=== PATIENT | female | born 1990 | race Caucasian/White ===

== ENCOUNTER 2021-04-06 23:58 | Observation (INO) ==
[2021-04-07] MEDS ORDERED: ONDANSETRON 4 MG/2 ML VIAL ONE (00:12)
[2021-04-07] MEDS ORDERED: AMMONIA INHALANT 1 EACH AMP INH ONE (00:12)
[2021-04-07] MEDS ORDERED: DEXTROSE 50% 25 GM/50 ML SYRINGE IV ONE (00:15)
[2021-04-07] MEDS ORDERED: DEXTROSE 50% 25 GM/50 ML SYRINGE IV STA (00:24)
[2021-04-07] MEDS ORDERED: SODIUM CHLORIDE 0.9% 500 ML IV STA (00:24)
[2021-04-07 00:48] LABS: Basophils % 0.5 % (0.0-0.8); Eosinophils # 0.2 10*3/uL (0.0-0.87); Eosinophils % 2.8 % (0.00-10.9); Hematocrit 39.3 VOL% (35.7-47.0); Immature Granulocytes % 0.5 %; Immature Granulocytes Absolute 0.03 #; Lymphocytes # 2.1 10*3/uL (1.4-4.0); Lymphocytes % 32.6 % (21.3-54.2); Mean Corpuscular HGB Conc 33.1 GM/DL (32-36); Mean Corpuscular Volume 89.1 FL (87-102); Mean Platelet Volume 11.2 FL (9.6-12.0); Monocytes % 6.1 % (1.7-12.7); Neutrophils % 57.5 % (38.7-73.9); Platelet Count 225 T/CUMM (130-400); Red Blood Count 4.41 MC/CUMM (3.8-5.5); Red Cell Distribution Width 12.5 % (9.3-17.3); Salicylate < 2.8 MG/DL (2.8-20); White Blood Count 6.4 T/CUMM (4-12)
[2021-04-07 00:50] LABS: Lactic Acid 1.1 MMOL/L (0.4-2.0)
[2021-04-07 01:01] LABS: Alanine Aminotransferase 14 U/L (13-56); Alkaline Phosphatase 80 U/L (45-117); Aspartate Amino Transferase 13 U/L (0-37); Blood Urea Nitrogen 8 MG/DL (7-18); Calcium 8.8 MG/DL (8.5-10.1); Carbon Dioxide 23 MMOL/L (21-32); Estimated Glom Filtration Rate 114 ML/MIN; Glucose 87 MG/DL (74-106); Osmolality,Calculated 275.4 MOS/KG (273-304); Potassium 3.9 MMOL/L (3.5-5.1); Sodium 140 MMOL/L (136-145); Total Protein 7.1 G/DL (6.4-8.2)
[2021-04-07 01:21] LABS: ABG Base Excess -0.8 MMOL/L (-2.5-2.5); ABG HCO3 23.8 MMOL/L (20-26); ABG Oxygen Saturation 98.4 % (95-100); ABG PH 7.395 (7.35-7.45); ABG TCO2 21.2 MMOL/L (23-27)
[2021-04-07] MEDS ORDERED: ACETAMINOPHEN 325 MG TABLET PO PRN (03:18)
[2021-04-07] MEDS ORDERED: DEXTROSE 50% 25 GM/50 ML VIAL IV PRN (03:18)
[2021-04-07] MEDS ORDERED: GLUCAGON 1 MG VIAL IM PRN (03:18)
[2021-04-07] MEDS ORDERED: ONDANSETRON 4 MG/2 ML VIAL IV PRN (03:18)
[2021-04-07] MEDS ORDERED: LACTATED RINGERS 1,000 ML IV SCH (03:30)
[2021-04-07] MEDS ORDERED: cefTRIAXone 2,000 MG in SODIUM CHLORIDE 0.9% 100 ML IV STA (03:48)
[2021-04-07 04:09] LABS: Basophils % 0.4 % (0.0-0.8); Eosinophils # 0.2 10*3/uL (0.0-0.87); Eosinophils % 2.8 % (0.00-10.9); Hematocrit 33.6 VOL% (35.7-47.0); Immature Granulocytes % 0.2 %; Immature Granulocytes Absolute 0.01 #; Lymphocytes # 1.8 10*3/uL (1.4-4.0); Lymphocytes % 32.6 % (21.3-54.2); Mean Corpuscular HGB Conc 32.4 GM/DL (32-36); Mean Corpuscular Volume 89.8 FL (87-102); Mean Platelet Volume 11.2 FL (9.6-12.0); Monocytes % 5.9 % (1.7-12.7); Neutrophils % 58.1 % (38.7-73.9); Platelet Count 185 T/CUMM (130-400); Red Blood Count 3.74 MC/CUMM (3.8-5.5); Red Cell Distribution Width 12.4 % (9.3-17.3); White Blood Count 5.6 T/CUMM (4-12)
[2021-04-07 04:13] LABS: Hemoglobin 10.9 GM/DL (12.0-16.0)
[2021-04-07 04:22] LABS: Appearance,CSF Hazy
[2021-04-07 04:23] LABS: Lymphocytes,CSF 33 %; Neutrophils,CSF 67 %; Red Blood Cell,CSF 1178 C/CUMM; White Blood Cell,CSF 5 C/CUMM
[2021-04-07 04:38] LABS: Albumin 3.2 G/DL (3.4-5.0); Bilirubin,Total 0.4 MG/DL (0.20-1.00); Calcium 7.6 MG/DL (8.5-10.1); Potassium 3.3 MMOL/L (3.5-5.1); Total Protein 5.5 G/DL (6.4-8.2)
[2021-04-07 04:38] LABS: Glucose,CSF 62 MG/DL (40-70)
[2021-04-07] MEDS ORDERED: POTASSIUM CHLORIDE 20 MEQ TABLET PO STA (04:52)
[2021-04-07] MEDS ORDERED: PROMETHAZINE 25 MG/1 ML VIAL IM STA (04:52)
[2021-04-07 05:40] LABS: Bilirubin,Urine Negative (Negative); Blood, Urine Moderate mg/dL (Negative); Glucose,Urine (UA) >=500 mg/dL (Negative); Ketones,Urine 5 mg/dL (Negative); Mucus,Urine Occasional /LPF (Occasional); Nitrite,Urine Negative (Negative); Protein,Urine Negative; RBC,Urine 10 /HPF (0-4); Squamous Epithelial Cell,Urine Occasional /HPF (0-10); Urine Appearance CLEAR (Clear); Urine Color Yellow (Yellow); Urine Specific Gravity 1.014 (1.001-1.035); Urine Urobilinogen < 2.0 EU/DL (0.2-1.0)
[2021-04-07 05:52] LABS: Barbiturates Screen,Urine Negative (Negative); Benzodiazepines Screen,Urine Negative (Negative); Cannabinoid Screen,Urine Negative (Negative); Opiate Screen,Urine Negative (Negative); Phencyclidine Screen,Urine Negative (Negative)
[2021-04-07] MEDS ORDERED: MAGNESIUM SULF RIDER 4 GM/100 ML PREMIX IV PRN (07:15)
[2021-04-07] MEDS ORDERED: MAGNESIUM SULF RIDER 2 GM/50 ML PREMIX IV PRN (07:15)
[2021-04-07] MEDS: POTASSIUM CHLORIDE RIDER 10 MEQ/100 ML PREMIX IV PRN ×3 (16:00→21:52)
[2021-04-07 16:11] LABS: Hematocrit 35.5 VOL% (35.7-47.0); Hemoglobin 11.5 GM/DL (12.0-16.0)
[2021-04-07] MEDS: PROMETHAZINE 25 MG/1 ML VIAL IM PRN (17:44)
[2021-04-07] MEDS: TOPIRAMATE 25 MG TABLET PO SCH (21:51)
[2021-04-08] MEDS: PROMETHAZINE 25 MG/1 ML VIAL IM PRN ×4 (00:33→21:40)
[2021-04-08] MEDS: POTASSIUM CHLORIDE RIDER 10 MEQ/100 ML PREMIX IV PRN (02:05)
[2021-04-08] MEDS: cefTRIAXone 1,000 MG in SODIUM CHLORIDE 0.9% 100 ML IV SCH (10:21)
[2021-04-08 12:06] LABS: Calcium 8.2 MG/DL (8.5-10.1)
[2021-04-08] MEDS: TOPIRAMATE 25 MG TABLET PO SCH (21:41)
[2021-04-09] MEDS: cefTRIAXone 1,000 MG in SODIUM CHLORIDE 0.9% 100 ML IV SCH (05:01)
[2021-04-09 08:21] VITALS: BP 83/43
== END 2021-04-09 10:18 | disposition home or self-care (01) ==
LOC: N.ED 23:58 → N.EDINP 23:58 → SUATTDRO 04-07 03:18 → N.TELEN 04-07 06:25
PROVIDERS: ADMIT Internal Medicine; ATTEND Internal Medicine Geriatric Medicine

== ENCOUNTER 2022-02-04 17:57 | Inpatient (IN) ==
[2022-02-04] MEDS ORDERED: ETOMIDATE 20 MG/10 ML VIAL IV ONE (18:22)
[2022-02-04] MEDS ORDERED: VECURONIUM 10 MG VIAL IV ONE (18:22)
[2022-02-04] MEDS ORDERED: ONDANSETRON 4 MG/2 ML VIAL IV STA (18:31)
[2022-02-04] MEDS ORDERED: SODIUM CHLORIDE 0.9% 1,000 ML IV STA (18:31)
[2022-02-04 18:45] LABS: Arterial Base Excess iSTAT 1 MMOL/L (-2.5-2.5); Arterial Bicarbonate iSTAT 23.6 MMOL/L (20-26); Arterial O2 Saturation iSTAT 100 % (95-100); Arterial PCO2 iSTAT 30 MM HG (35-48); Arterial PO2 iSTAT 558 MM HG (80-95); Arterial Total CO2 iSTAT 24 MMO/L (23-27); Arterial pH iSTAT 7.508 (7.35-7.45)
[2022-02-04 18:57] LABS: Basophils # 0.1 10*3/uL (0.0-0.2); Basophils % 0.9 % (0.0-0.8); Eosinophils # 0.2 10*3/uL (0.0-0.87); Eosinophils % 2.7 % (0.00-10.9); Hematocrit 38.4 VOL% (35.7-47.0); Hemoglobin 12.7 GM/DL (12.0-16.0); Immature Granulocytes % 0.4 %; Immature Granulocytes Absolute 0.02 #; Lymphocytes # 2.1 10*3/uL (1.4-4.0); Lymphocytes % 36.9 % (21.3-54.2); Mean Corpuscular HGB Conc 33.1 GM/DL (32-36); Mean Corpuscular Volume 86.7 FL (87-102); Mean Platelet Volume 11.4 FL (9.6-12.0); Monocytes # 0.4 10*3/uL (0.11-0.8); Monocytes % 7.5 % (1.7-12.7); Neutrophils % 51.6 % (38.7-73.9); Platelet Count 207 T/CUMM (130-400); Red Blood Count 4.43 MC/CUMM (3.8-5.5); Red Cell Distribution Width 13.5 % (9.3-17.3); White Blood Count 5.6 T/CUMM (4-12)
[2022-02-04 19:02] LABS: Alanine Aminotransferase 15 U/L (13-56); Albumin 3.8 G/DL (3.4-5.0); Alkaline Phosphatase 83 U/L (45-117); Aspartate Amino Transferase 12 U/L (0-37); Bilirubin,Total < 0.39 MG/DL (0.20-1.00); Blood Urea Nitrogen 6 MG/DL (7-18); Calcium 8.5 MG/DL (8.5-10.1); Carbon Dioxide 25 MMOL/L (21-32); Chloride 113 MMOL/L (98-107); Glucose 92 MG/DL (74-106); Osmolality,Calculated 283.8 MOS/KG (273-304); Potassium 3.9 MMOL/L (3.5-5.1); Sodium 144 MMOL/L (136-145); Total Protein 6.7 G/DL (6.4-8.2)
[2022-02-04] MEDS ORDERED: MIDAZOLAM 10 MG/2 ML VIAL ONE (19:29)
[2022-02-04] MEDS ORDERED: MIDAZOLAM 100 MG in SODIUM CHLORIDE 0.9% 80 ML IV PRN (19:38)
[2022-02-04] MEDS ORDERED: SODIUM CHLORIDE 0.9% 500 ML IV STA (19:39)
[2022-02-04] MEDS ORDERED: MIDAZOLAM 10 MG/2 ML VIAL IV STA (19:39)
[2022-02-04] MEDS ORDERED: PIPERACILLIN/TAZOBACTAM 3,375 MG in SODIUM CHLORIDE 0.9% 100 ML IV STA (19:42)
[2022-02-04] MEDS ORDERED: ACETAMINOPHEN 325 MG TABLET PO PRN (19:46)
[2022-02-04] MEDS ORDERED: ALBUTEROL 2.5 MG/3 ML NEB RESP TX PRN (19:46)
[2022-02-04] MEDS ORDERED: ACETYLCYSTEINE IV ONE ×2 (20:36→21:36)
[2022-02-04] MEDS ORDERED: DEXTROSE 5% IV ONE ×2 (20:36→21:36)
[2022-02-04 20:58] LABS: Bilirubin,Urine Negative (Negative); Blood, Urine Negative (Negative); Glucose,Urine (UA) Negative (Negative); Ketones,Urine Trace mg/dL (Negative); Nitrite,Urine Negative (Negative); Protein,Urine Negative (Negative); Urine Appearance Clear (Clear); Urine Color Yellow (Yellow); Urine Specific Gravity <= 1.005 (1.001-1.035); Urine Urobilinogen 0.2 eU/dL (<2.0); Urine pH 5.5 (4.5-8.0)
[2022-02-04 20:59] LABS: Bacteria,Urine Occasional /HPF (Few); Mucus,Urine Occasional /LPF (Occasional); Squamous Epithelial Cell,Urine Occasional /HPF (0-10)
[2022-02-04] MEDS ORDERED: PANTOPRAZOLE 40 MG VIAL IV SCH (21:00)
[2022-02-04 21:26] LABS: Arterial Base Excess iSTAT -6 MMOL/L (-2.5-2.5); Arterial Bicarbonate iSTAT 20.3 MMOL/L (20-26); Arterial O2 Saturation iSTAT 100 % (95-100); Arterial PCO2 iSTAT 45 MM HG (35-48); Arterial PO2 iSTAT 281 MM HG (80-95); Arterial Total CO2 iSTAT 22 MMO/L (23-27); Arterial pH iSTAT 7.265 (7.35-7.45)
[2022-02-04 21:48] LABS: Barbiturates Screen,Urine Positive (Negative); Benzodiazepines Screen,Urine Positive (Negative); Cannabinoid Screen,Urine Negative (Negative); Opiate Screen,Urine Negative (Negative); Phencyclidine Screen,Urine Negative (Negative)
[2022-02-04] MEDS: SODIUM CHLORIDE 0.9% 1,000 ML IV SCH (22:10)
[2022-02-05] MEDS: ENOXAPARIN 40 MG/0.4 ML SYRINGE SUBCUT SCH ×2 (00:02→20:37)
[2022-02-05] MEDS: ALBUTEROL/IPRATROPIUM 3 ML NEB RESP TX SCH ×4 (00:10→18:25)
[2022-02-05] MEDS ORDERED: ACETYLCYSTEINE IV ONE (01:36)
[2022-02-05] MEDS ORDERED: DEXTROSE 5% IV ONE (01:36)
[2022-02-05 03:09] LABS: Arterial Base Excess iSTAT -2 MMOL/L (-2.5-2.5); Arterial Bicarbonate iSTAT 21.5 MMOL/L (20-26); Arterial O2 Saturation iSTAT 100 % (95-100); Arterial PCO2 iSTAT 33 MM HG (35-48); Arterial PO2 iSTAT 199 MM HG (80-95); Arterial Total CO2 iSTAT 22 MMO/L (23-27); Arterial pH iSTAT 7.424 (7.35-7.45)
[2022-02-05] MEDS: THIAMINE INJ 100 MG, FOLIC ACID INJ 1 MG, MULTIVITAMIN INJ 10 ML in SODIUM CHLORIDE 0.9... IV SCH (03:31)
[2022-02-05] MEDS: SODIUM CHLORIDE 0.9% 1,000 ML IV SCH (04:13)
[2022-02-05 04:14] LABS: Basophils % 0.4 % (0.0-0.8); Eosinophils # 0.2 10*3/uL (0.0-0.87); Eosinophils % 1.8 % (0.00-10.9); Hematocrit 33.6 VOL% (35.7-47.0); Hemoglobin 11.2 GM/DL (12.0-16.0); Immature Granulocytes % 0.4 %; Immature Granulocytes Absolute 0.03 #; Lymphocytes % 24.7 % (21.3-54.2); Mean Corpuscular HGB Conc 33.3 GM/DL (32-36); Mean Corpuscular Volume 87.5 FL (87-102); Monocytes # 0.5 10*3/uL (0.11-0.8); Monocytes % 6.2 % (1.7-12.7); Neutrophils % 66.5 % (38.7-73.9); Platelet Count 181 T/CUMM (130-400); Red Blood Count 3.84 MC/CUMM (3.8-5.5); Red Cell Distribution Width 13.3 % (9.3-17.3); White Blood Count 8.3 T/CUMM (4-12)
[2022-02-05 04:28] LABS: INR 1.2; PT Patient Result 12.6 SECS (10.5-12.0)
[2022-02-05 04:35] LABS: Alanine Aminotransferase 22 U/L (13-56); Albumin 2.9 G/DL (3.4-5.0); Alkaline Phosphatase 65 U/L (45-117); Aspartate Amino Transferase 11 U/L (0-37); Bilirubin,Total < 0.39 MG/DL (0.20-1.00); Blood Urea Nitrogen 4 MG/DL (7-18); Calcium 7.4 MG/DL (8.5-10.1); Carbon Dioxide 23 MMOL/L (21-32); Chloride 116 MMOL/L (98-107); Glucose 86 MG/DL (74-106); Potassium 3.4 MMOL/L (3.5-5.1); Sodium 150 MMOL/L (136-145); Total Protein 5.6 G/DL (6.4-8.2)
[2022-02-05] MEDS ORDERED: MAGNESIUM SULF RIDER 4 GM/100 ML PREMIX IV PRN (05:16)
[2022-02-05] MEDS ORDERED: POTASSIUM CHLORIDE RIDER 10 MEQ/100 ML PREMIX IV PRN (05:16)
[2022-02-05] MEDS ORDERED: MAGNESIUM SULF RIDER 2 GM/50 ML PREMIX IV PRN (05:16)
[2022-02-05] MEDS: PIPERACILLIN/TAZOBACTAM 3,375 MG in SODIUM CHLORIDE 0.9% 100 ML IV SCH ×3 (05:18→20:31)
[2022-02-05] MEDS ORDERED: LACTATED RINGERS 1,000 ML IV SCH (05:30)
[2022-02-05] MEDS: POTASSIUM BICARB EFFERVESCENT 20 MEQ TAB.EFF PER TUBE PRN ×4 (06:04→22:26)
[2022-02-05] MEDS: ONDANSETRON 4 MG/2 ML VIAL IV PRN ×2 (09:24→22:26)
[2022-02-05] MEDS: PHENOL 1.4% THROAT SPRAY 177 ML BOTTLE PO PRN ×3 (10:04→15:50)
[2022-02-05] MEDS ORDERED: IBUPROFEN 800 MG TABLET PO ONE (15:24)
[2022-02-05 16:12] LABS: Albumin 2.7 G/DL (3.4-5.0); Bilirubin,Total 0.4 MG/DL (0.20-1.00); Calcium 7.9 MG/DL (8.5-10.1); Osmolality,Calculated 282.8 MOS/KG (273-304); Potassium 3.7 MMOL/L (3.5-5.1); Total Protein 5.4 G/DL (6.4-8.2)
[2022-02-05] MEDS: NICOTINE 21 MG/24 HR PATCH TRANSDERM SCH (17:49)
[2022-02-05] MEDS ORDERED: ACETAMINOPHEN 325 MG TABLET PO PRN (19:59)
[2022-02-05] MEDS ORDERED: ZALEPLON 5 MG CAPSULE PO PRN (20:00)
[2022-02-05 21:48] LABS: PT Patient Result 11.5 SECS (10.5-12.0); Partial Thromboplastin Time 29.2 SECS (23.7-32.9)
[2022-02-05 22:05] LABS: Alanine Aminotransferase 11 U/L (13-56); Aspartate Amino Transferase 11 U/L (0-37)
[2022-02-06] MEDS ORDERED: IBUPROFEN 800 MG TABLET PO ONE (00:51)
[2022-02-06] MEDS ORDERED: LORazepam 2 MG/1 ML VIAL ONE ×3 (02:40→22:45)
[2022-02-06] MEDS: ONDANSETRON 4 MG/2 ML VIAL IV PRN ×2 (02:49→03:08)
[2022-02-06] MEDS ORDERED: LORazepam 2 MG/1 ML VIAL IV ONE ×3 (02:49→23:30)
[2022-02-06] MEDS ORDERED: levETIRAcetam 500 MG/5 ML VIAL IV ONE (02:57)
[2022-02-06] MEDS ORDERED: PROMETHAZINE 25 MG/1 ML VIAL ONE (03:03)
[2022-02-06] MEDS ORDERED: MORPHINE 2 MG/1 ML SYRINGE ONE (03:04)
[2022-02-06] MEDS ORDERED: PROMETHAZINE INJ 25 MG in SODIUM CHLORIDE 0.9% 50 ML IV ONE (03:12)
[2022-02-06] MEDS ORDERED: MORPHINE 2 MG/1 ML SYRINGE IV ONE (03:14)
[2022-02-06] MEDS: THIAMINE INJ 100 MG, FOLIC ACID INJ 1 MG, MULTIVITAMIN INJ 10 ML in SODIUM CHLORIDE 0.9... IV SCH (05:00)
[2022-02-06] MEDS: PIPERACILLIN/TAZOBACTAM 3,375 MG in SODIUM CHLORIDE 0.9% 100 ML IV SCH (05:00)
[2022-02-06 05:30] LABS: Alanine Aminotransferase 12 U/L (13-56); Albumin 2.7 G/DL (3.4-5.0); Alkaline Phosphatase 70 U/L (45-117); Aspartate Amino Transferase 11 U/L (0-37); Bilirubin,Total < 0.39 MG/DL (0.20-1.00); Blood Urea Nitrogen 8 MG/DL (7-18); Calcium 8.5 MG/DL (8.5-10.1); Carbon Dioxide 26 MMOL/L (21-32); Chloride 114 MMOL/L (98-107); Glucose 102 MG/DL (74-106); Osmolality,Calculated 283.8 MOS/KG (273-304); Potassium 3.8 MMOL/L (3.5-5.1); Sodium 144 MMOL/L (136-145); Total Protein 5.5 G/DL (6.4-8.2)
[2022-02-06 06:15] LABS: Basophils % 0.6 % (0.0-0.8); Eosinophils # 0.2 10*3/uL (0.0-0.87); Eosinophils % 2.6 % (0.00-10.9); Hematocrit 31.3 VOL% (35.7-47.0); Hemoglobin 10.5 GM/DL (12.0-16.0); Immature Granulocytes % 0.3 %; Immature Granulocytes Absolute 0.02 #; Lymphocytes # 1.8 10*3/uL (1.4-4.0); Lymphocytes % 27.6 % (21.3-54.2); Mean Corpuscular HGB Conc 33.5 GM/DL (32-36); Mean Corpuscular Volume 87.7 FL (87-102); Mean Platelet Volume 11.6 FL (9.6-12.0); Monocytes # 0.4 10*3/uL (0.11-0.8); Monocytes % 6.3 % (1.7-12.7); Neutrophils % 62.6 % (38.7-73.9); Platelet Count 170 T/CUMM (130-400); Red Blood Count 3.57 MC/CUMM (3.8-5.5); Red Cell Distribution Width 13.4 % (9.3-17.3); White Blood Count 6.6 T/CUMM (4-12)
[2022-02-06] MEDS ORDERED: POTASSIUM CHLORIDE 20 MEQ TABLET PO ONE (07:50)
[2022-02-06] MEDS: NICOTINE 21 MG/24 HR PATCH TRANSDERM SCH (08:26)
[2022-02-06] MEDS: clonazePAM 0.5 MG TABLET PO SCH ×2 (08:26→21:03)
[2022-02-06] MEDS: levETIRAcetam 500 MG TABLET PO SCH ×2 (08:27→21:02)
[2022-02-06] MEDS ORDERED: THIAMINE INJ 100 MG, FOLIC ACID INJ 1 MG, MULTIVITAMIN INJ 10 ML in SODIUM CHLORIDE 0.9... IV SCH (14:05)
[2022-02-06] MEDS: BUTALBITAL/ACETAMIN/CAFFEINE 50-325-40 MG TABLET PO PRN (16:24)
[2022-02-06] MEDS: ENOXAPARIN 40 MG/0.4 ML SYRINGE SUBCUT SCH (21:03)
[2022-02-06] MEDS ORDERED: LORazepam 1 MG TABLET PO ONE (23:00)
[2022-02-07] MEDS ORDERED: PROMETHAZINE 25 MG/1 ML VIAL IM ONE (00:29)
[2022-02-07] MEDS: BUTALBITAL/ACETAMIN/CAFFEINE 50-325-40 MG TABLET PO PRN (00:43)
[2022-02-07] MEDS: THIAMINE INJ 100 MG, FOLIC ACID INJ 1 MG, MULTIVITAMIN INJ 10 ML in SODIUM CHLORIDE 0.9... IV SCH ×2 (00:44→02:39)
[2022-02-07 02:10] LABS: Calcium 8.2 MG/DL (8.5-10.1); Osmolality,Calculated 282.8 MOS/KG (273-304); Potassium 4.2 MMOL/L (3.5-5.1)
[2022-02-07 05:48] LABS: Basophils % 0.7 % (0.0-0.8); Eosinophils # 0.4 10*3/uL (0.0-0.87); Eosinophils % 7.1 % (0.00-10.9); Hematocrit 31.5 VOL% (35.7-47.0); Hemoglobin 10.2 GM/DL (12.0-16.0); Immature Granulocytes % 0.3 %; Immature Granulocytes Absolute 0.02 #; Lymphocytes # 2.8 10*3/uL (1.4-4.0); Lymphocytes % 46.3 % (21.3-54.2); Mean Corpuscular HGB Conc 32.4 GM/DL (32-36); Mean Corpuscular Volume 89.5 FL (87-102); Mean Platelet Volume 11.8 FL (9.6-12.0); Monocytes # 0.3 10*3/uL (0.11-0.8); Monocytes % 5.6 % (1.7-12.7); Platelet Count 169 T/CUMM (130-400); Red Blood Count 3.52 MC/CUMM (3.8-5.5); Red Cell Distribution Width 13.6 % (9.3-17.3); White Blood Count 5.9 T/CUMM (4-12)
[2022-02-07 06:11] LABS: Alanine Aminotransferase 12 U/L (13-56); Albumin 2.7 G/DL (3.4-5.0); Alkaline Phosphatase 71 U/L (45-117); Aspartate Amino Transferase 10 U/L (0-37); Bilirubin,Total < 0.39 MG/DL (0.20-1.00); Blood Urea Nitrogen 8 MG/DL (7-18); Calcium 8.4 MG/DL (8.5-10.1); Carbon Dioxide 26 MMOL/L (21-32); Chloride 114 MMOL/L (98-107); Glucose 127 MG/DL (74-106); Osmolality,Calculated 287.7 MOS/KG (273-304); Potassium 3.4 MMOL/L (3.5-5.1); Sodium 145 MMOL/L (136-145); Total Protein 5.3 G/DL (6.4-8.2)
[2022-02-07 07:38] VITALS: BP 118/81
[2022-02-07] MEDS: clonazePAM 0.5 MG TABLET PO SCH (09:43)
[2022-02-07] MEDS: levETIRAcetam 500 MG TABLET PO SCH (09:43)
[2022-02-07] MEDS: NICOTINE 21 MG/24 HR PATCH TRANSDERM SCH (10:24)
[2022-02-07 10:59] LABS: Basophils % 0.7 % (0.0-0.8); Eosinophils # 0.4 10*3/uL (0.0-0.87); Eosinophils % 7.6 % (0.00-10.9); Hematocrit 31.5 VOL% (35.7-47.0); Hemoglobin 10.4 GM/DL (12.0-16.0); Immature Granulocytes % 0.3 %; Immature Granulocytes Absolute 0.02 #; Lymphocytes # 1.8 10*3/uL (1.4-4.0); Lymphocytes % 31.1 % (21.3-54.2); Mean Platelet Volume 11.5 FL (9.6-12.0); Monocytes # 0.4 10*3/uL (0.11-0.8); Monocytes % 7.3 % (1.7-12.7); Platelet Count 159 T/CUMM (130-400); Red Blood Count 3.54 MC/CUMM (3.8-5.5); Red Cell Distribution Width 13.6 % (9.3-17.3); White Blood Count 5.8 T/CUMM (4-12)
[2022-02-07 11:28] LABS: Alanine Aminotransferase 11 U/L (13-56); Albumin 2.6 G/DL (3.4-5.0); Alkaline Phosphatase 71 U/L (45-117); Aspartate Amino Transferase 9 U/L (0-37); Bilirubin,Total < 0.39 MG/DL (0.20-1.00); Blood Urea Nitrogen 8 MG/DL (7-18); Calcium 8.3 MG/DL (8.5-10.1); Carbon Dioxide 27 MMOL/L (21-32); Chloride 113 MMOL/L (98-107); Glucose 81 MG/DL (74-106); Potassium 3.8 MMOL/L (3.5-5.1); Sodium 143 MMOL/L (136-145); Total Protein 5.4 G/DL (6.4-8.2)
[2022-02-07] MEDS: ONDANSETRON 4 MG/2 ML VIAL IV PRN (12:41)
== END 2022-02-07 19:05 | disposition hospice, home (50) | DRG 812 ==
LOC: N.ED 17:57 → N.EDINP 19:40 → SUATTDRO 19:40 → N.ICU 20:17 → N.5E 02-06 20:57 → N.ICU 02-07 10:16
PROVIDERS: ADMIT Family Medicine; ATTEND Internal Medicine

== ENCOUNTER 2022-06-14 19:28 | Inpatient (IN) ==
[2022-06-14] MEDS ORDERED: ONDANSETRON 4 MG/2 ML VIAL IV STA (20:04)
[2022-06-14] MEDS ORDERED: MORPHINE 2 MG/1 ML SYRINGE IV STA (20:04)
[2022-06-14] MEDS ORDERED: SODIUM CHLORIDE 0.9% 1,000 ML IV STA ×2 (20:04→21:17)
[2022-06-14 20:15] LABS: Basophils % 0.4 % (0.0-0.8); Hematocrit 36.7 VOL% (35.7-47.0); Hemoglobin 11.9 GM/DL (12.0-16.0); Immature Granulocytes % 0.4 %; Immature Granulocytes Absolute 0.02 #; Lymphocytes # 0.9 10*3/uL (1.4-4.0); Lymphocytes % 18.1 % (21.3-54.2); Mean Corpuscular HGB Conc 32.4 GM/DL (32-36); Mean Corpuscular Volume 85.5 FL (87-102); Mean Platelet Volume 10.8 FL (9.6-12.0); Monocytes # 0.4 10*3/uL (0.11-0.8); Monocytes % 9.3 % (1.7-12.7); Neutrophils % 71.8 % (38.7-73.9); Platelet Count 298 T/CUMM (130-400); Red Blood Count 4.29 MC/CUMM (3.8-5.5); Red Cell Distribution Width 13.4 % (9.3-17.3); White Blood Count 4.8 T/CUMM (4-12)
[2022-06-14 21:05] LABS: Alanine Aminotransferase 122 U/L (13-56); Albumin 3.6 G/DL (3.4-5.0); Alkaline Phosphatase 77 U/L (45-117); Aspartate Amino Transferase 174 U/L (0-37); Blood Urea Nitrogen 20 MG/DL (7-18); Carbon Dioxide 18 MMOL/L (21-32); Chloride 112 MMOL/L (98-107); Glucose 245 MG/DL (74-106); Potassium 3.6 MMOL/L (3.5-5.1); Sodium 143 MMOL/L (136-145); Total Protein 6.3 G/DL (6.4-8.2)
[2022-06-14] MEDS ORDERED: KETOROLAC 30 MG/1 ML VIAL IV STA (21:17)
[2022-06-14 21:49] LABS: Bacteria,Urine Occasional /HPF (Few); Bilirubin,Urine Negative (Negative); Blood, Urine Negative (Negative); Glucose,Urine (UA) 150 mg/dL (Negative); Ketones,Urine 5 mg/dL (Negative); Mucus,Urine Few /LPF (Occasional); Nitrite,Urine Negative (Negative); Protein,Urine Negative (Negative); RBC,Urine 1 /HPF (0-4); Squamous Epithelial Cell,Urine Few /HPF (0-10); Urine Appearance Slightly Hazy (Clear); Urine Color Yellow (Yellow); Urine Specific Gravity 1.044 (1.001-1.035); Urine Urobilinogen < 2.0 eU/dL (<2.0)
[2022-06-14 22:16] LABS: Barbiturates Screen,Urine Negative (Negative); Benzodiazepines Screen,Urine Negative (Negative); Cannabinoid Screen,Urine Negative (Negative); Opiate Screen,Urine Positive (Negative); Phencyclidine Screen,Urine Negative (Negative)
[2022-06-14 22:32] LABS: INR 1.3; PT Patient Result 14.3 SECS (10.1-12.1); Partial Thromboplastin Time 29.5 SECS (23.7-32.9)
[2022-06-14] MEDS ORDERED: ACETYLCYSTEINE IV ONE (22:43)
[2022-06-14] MEDS ORDERED: DEXTROSE 5% IV ONE (22:43)
[2022-06-14] MEDS ORDERED: diphenhydrAMINE CAP 25 MG CAPSULE PO PRN (23:08)
[2022-06-14] MEDS ORDERED: hydrALAZINE 20 MG/1 ML VIAL IV PRN (23:08)
[2022-06-14] MEDS ORDERED: NICOTINE 21 MG/24 HR PATCH TRANSDERM PRN (23:08)
[2022-06-14] MEDS ORDERED: guaiFENesin/DM ER 600-30 MG TABLET PO PRN (23:08)
[2022-06-14] MEDS ORDERED: ZALEPLON 5 MG CAPSULE PO PRN (23:08)
[2022-06-15] MEDS: SODIUM CHLORIDE 0.9% 1,000 ML IV SCH ×4 (00:25→23:45)
[2022-06-15 02:39] LABS: INR 1.8; PT Patient Result 18.7 SECS (10.1-12.1); Partial Thromboplastin Time 30.4 SECS (23.7-32.9)
[2022-06-15 02:49] LABS: Albumin 3.3 G/DL (3.4-5.0); Bilirubin,Direct 0.31 MG/DL (0.0-0.20); Bilirubin,Indirect 0.7 MG/DL (0.0-1.0); Total Protein 6.2 G/DL (6.4-8.2)
[2022-06-15 05:49] LABS: Basophils % 0.3 % (0.0-0.8); Hematocrit 36.1 VOL% (35.7-47.0); Hemoglobin 11.7 GM/DL (12.0-16.0); Immature Granulocytes % 0.5 %; Immature Granulocytes Absolute 0.06 #; Lymphocytes # 1.9 10*3/uL (1.4-4.0); Lymphocytes % 15.9 % (21.3-54.2); Mean Corpuscular HGB Conc 32.4 GM/DL (32-36); Mean Corpuscular Volume 85.3 FL (87-102); Mean Platelet Volume 10.9 FL (9.6-12.0); Monocytes # 0.5 10*3/uL (0.11-0.8); Monocytes % 4.4 % (1.7-12.7); Neutrophils % 78.9 % (38.7-73.9); Platelet Count 318 T/CUMM (130-400); Red Blood Count 4.23 MC/CUMM (3.8-5.5); Red Cell Distribution Width 13.6 % (9.3-17.3); White Blood Count 12.2 T/CUMM (4-12)
[2022-06-15 06:23] LABS: Albumin 2.8 G/DL (3.4-5.0); Bilirubin,Total 1.4 MG/DL (0.20-1.00); Calcium 7.7 MG/DL (8.5-10.1); Osmolality,Calculated 286.1 MOS/KG (273-304); Potassium 3.2 MMOL/L (3.5-5.1); Total Protein 5.6 G/DL (6.4-8.2)
[2022-06-15 07:16] LABS: INR 2.1; PT Patient Result 22.4 SECS (10.1-12.1); Partial Thromboplastin Time 31.1 SECS (23.7-32.9)
[2022-06-15] MEDS: ONDANSETRON 4 MG/2 ML VIAL IV PRN ×3 (08:27→18:06)
[2022-06-15] MEDS ORDERED: DEXTROSE 5% IV ONE ×3 (09:00→14:46)
[2022-06-15] MEDS ORDERED: ACETYLCYSTEINE IV ONE ×3 (09:00→14:46)
[2022-06-15] MEDS: HEPARIN 5,000 UNIT/1 ML VIAL SUBCUT SCH ×2 (09:19→22:17)
[2022-06-15] MEDS: PANTOPRAZOLE 40 MG TABLET PO SCH (09:20)
[2022-06-15] MEDS: PROMETHAZINE INJ 12.5 MG in SODIUM CHLORIDE 0.9% 50 ML IV PRN ×2 (14:37→22:16)
[2022-06-15 19:24] LABS: INR 4.7; PT Patient Result 46.8 SECS (10.1-12.1)
[2022-06-15 19:35] LABS: Albumin 2.6 G/DL (3.4-5.0); Bilirubin,Total 1.8 MG/DL (0.20-1.00); Calcium 8.1 MG/DL (8.5-10.1); Osmolality,Calculated 277.5 MOS/KG (273-304); Potassium 3.2 MMOL/L (3.5-5.1); Total Protein 5.3 G/DL (6.4-8.2)
[2022-06-16 05:33] LABS: Basophils # 0.1 10*3/uL (0.0-0.2); Basophils % 0.8 % (0.0-0.8); Eosinophils # 0.1 10*3/uL (0.0-0.87); Eosinophils % 1.8 % (0.00-10.9); Hemoglobin 11.1 GM/DL (12.0-16.0); Immature Granulocytes % 0.4 %; Immature Granulocytes Absolute 0.03 #; Lymphocytes # 2.3 10*3/uL (1.4-4.0); Lymphocytes % 29.3 % (21.3-54.2); Mean Corpuscular HGB Conc 32.6 GM/DL (32-36); Mean Corpuscular Volume 84.4 FL (87-102); Mean Platelet Volume 11.3 FL (9.6-12.0); Monocytes # 0.4 10*3/uL (0.11-0.8); Monocytes % 5.7 % (1.7-12.7); Platelet Count 271 T/CUMM (130-400); Red Blood Count 4.03 MC/CUMM (3.8-5.5); Red Cell Distribution Width 13.8 % (9.3-17.3); White Blood Count 7.7 T/CUMM (4-12)
[2022-06-16 05:50] LABS: INR 2.8; PT Patient Result 28.5 SECS (10.1-12.1)
[2022-06-16 05:56] LABS: Albumin 2.5 G/DL (3.4-5.0); Bilirubin,Total 1.5 MG/DL (0.20-1.00); Calcium 7.7 MG/DL (8.5-10.1); Osmolality,Calculated 286.7 MOS/KG (273-304); Potassium 3.1 MMOL/L (3.5-5.1); Total Protein 4.7 G/DL (6.4-8.2)
[2022-06-16 07:29] LABS: Albumin 2.5 G/DL (3.4-5.0); Bilirubin,Direct 0.61 MG/DL (0.0-0.20); Bilirubin,Indirect 0.8 MG/DL (0.0-1.0); Bilirubin,Total 1.4 MG/DL (0.20-1.00); Total Protein 4.8 G/DL (6.4-8.2)
[2022-06-16] MEDS ORDERED: POTASSIUM CHLORIDE 20 MEQ TABLET PO ONE (08:37)
[2022-06-16] MEDS: HEPARIN 5,000 UNIT/1 ML VIAL SUBCUT SCH ×2 (09:11→20:51)
[2022-06-16] MEDS: PANTOPRAZOLE 40 MG TABLET PO SCH (09:11)
[2022-06-16] MEDS: SODIUM CHLORIDE 0.9% 1,000 ML IV SCH ×2 (09:43→16:14)
[2022-06-16] MEDS: PROMETHAZINE INJ 12.5 MG in SODIUM CHLORIDE 0.9% 50 ML IV PRN (11:19)
[2022-06-16] MEDS ORDERED: DEXTROSE 5% IV ONE ×2 (20:00→21:00)
[2022-06-16] MEDS ORDERED: ACETYLCYSTEINE IV ONE ×2 (20:00→21:00)
[2022-06-16] MEDS: HYDROmorphone 1 MG/1 ML SYRINGE IV PRN (20:52)
[2022-06-17] MEDS ORDERED: ACETYLCYSTEINE IV ONE (01:00)
[2022-06-17] MEDS ORDERED: DEXTROSE 5% IV ONE (01:00)
[2022-06-17] MEDS: SODIUM CHLORIDE 0.9% 1,000 ML IV SCH ×3 (01:00→17:49)
[2022-06-17] MEDS: PROMETHAZINE INJ 12.5 MG in SODIUM CHLORIDE 0.9% 50 ML IV PRN ×3 (02:31→18:59)
[2022-06-17] MEDS: HYDROmorphone 1 MG/1 ML SYRINGE IV PRN ×2 (04:27→19:03)
[2022-06-17 05:14] LABS: Basophils % 0.4 % (0.0-0.8); Eosinophils % 0.1 % (0.00-10.9); Hematocrit 34.9 VOL% (35.7-47.0); Hemoglobin 11.7 GM/DL (12.0-16.0); Immature Granulocytes % 0.6 %; Immature Granulocytes Absolute 0.07 #; Lymphocytes # 1.2 10*3/uL (1.4-4.0); Lymphocytes % 10.7 % (21.3-54.2); Mean Corpuscular HGB Conc 33.5 GM/DL (32-36); Mean Corpuscular Volume 83.3 FL (87-102); Mean Platelet Volume 11.3 FL (9.6-12.0); Monocytes # 0.7 10*3/uL (0.11-0.8); Monocytes % 6.3 % (1.7-12.7); Neutrophils % 81.9 % (38.7-73.9); Platelet Count 230 T/CUMM (130-400); Red Blood Count 4.19 MC/CUMM (3.8-5.5); Red Cell Distribution Width 14.1 % (9.3-17.3); White Blood Count 11.1 T/CUMM (4-12)
[2022-06-17 05:21] LABS: INR 2.4; PT Patient Result 24.6 SECS (10.1-12.1)
[2022-06-17 06:11] LABS: Albumin 2.6 G/DL (3.4-5.0); Bilirubin,Total 1.3 MG/DL (0.20-1.00); Osmolality,Calculated 281.8 MOS/KG (273-304); Potassium 3.5 MMOL/L (3.5-5.1); Total Protein 4.9 G/DL (6.4-8.2)
[2022-06-17] MEDS: POLYETHYLENE GLYCOL POWDER 17 GM PACK PO SCH ×3 (09:19→20:40)
[2022-06-17] MEDS: PANTOPRAZOLE 40 MG TABLET PO SCH (09:19)
[2022-06-17] MEDS: HEPARIN 5,000 UNIT/1 ML VIAL SUBCUT SCH ×2 (09:19→20:40)
[2022-06-17] MEDS: IBUPROFEN 400 MG TABLET PO PRN (09:39)
[2022-06-17] MEDS ORDERED: KETOROLAC 30 MG/1 ML VIAL IV ONE (12:34)
[2022-06-17 23:09] LABS: PT Patient Result 20.8 SECS (10.1-12.1)
[2022-06-17 23:19] LABS: Alanine Aminotransferase 2504 U/L (13-56); Aspartate Amino Transferase 1889 U/L (0-37)
[2022-06-18] MEDS ORDERED: DEXTROSE 5% IV ONE (01:00)
[2022-06-18] MEDS ORDERED: ACETYLCYSTEINE IV ONE (01:00)
[2022-06-18] MEDS: SODIUM CHLORIDE 0.9% 1,000 ML IV SCH ×3 (01:10→20:35)
[2022-06-18] MEDS: ONDANSETRON 4 MG/2 ML VIAL IV PRN ×3 (02:25→20:36)
[2022-06-18] MEDS: HYDROmorphone 1 MG/1 ML SYRINGE IV PRN ×3 (02:25→20:36)
[2022-06-18 05:20] LABS: INR 1.6; PT Patient Result 17.3 SECS (10.1-12.1)
[2022-06-18 05:36] LABS: Albumin 2.8 G/DL (3.4-5.0); Bilirubin,Total 1.5 MG/DL (0.20-1.00); Calcium 7.7 MG/DL (8.5-10.1); Total Protein 5.1 G/DL (6.4-8.2)
[2022-06-18] MEDS: POLYETHYLENE GLYCOL POWDER 17 GM PACK PO SCH ×3 (09:02→21:36)
[2022-06-18] MEDS: LACTULOSE 20 GM/30 ML UDCUP PO SCH ×2 (09:03→21:36)
[2022-06-18] MEDS: HEPARIN 5,000 UNIT/1 ML VIAL SUBCUT SCH ×2 (09:03→21:35)
[2022-06-18] MEDS: PANTOPRAZOLE 40 MG TABLET PO SCH (09:03)
[2022-06-18 13:53] LABS: INR 1.4; PT Patient Result 14.8 SECS (10.1-12.1); Partial Thromboplastin Time 30.9 SECS (23.7-32.9)
[2022-06-18 14:11] LABS: Alanine Aminotransferase 1978 U/L (13-56); Aspartate Amino Transferase 837 U/L (0-37)
[2022-06-19] MEDS: SODIUM CHLORIDE 0.9% 1,000 ML IV SCH (01:28)
[2022-06-19] MEDS: IBUPROFEN 400 MG TABLET PO PRN (02:11)
[2022-06-19 04:53] LABS: INR 1.1; PT Patient Result 12.5 SECS (10.1-12.1)
[2022-06-19] MEDS: HYDROmorphone 1 MG/1 ML SYRINGE IV PRN ×2 (05:06→12:11)
[2022-06-19 05:39] LABS: Alanine Aminotransferase 1665 U/L (13-56); Albumin 2.8 G/DL (3.4-5.0); Alkaline Phosphatase 100 U/L (45-117); Aspartate Amino Transferase 405 U/L (0-37); Blood Urea Nitrogen < 1 MG/DL (7-18); Calcium 8.1 MG/DL (8.5-10.1); Carbon Dioxide 24 MMOL/L (21-32); Chloride 109 MMOL/L (98-107); Glucose 78 MG/DL (74-106); Osmolality,Calculated 273.8 MOS/KG (273-304); Potassium 2.8 MMOL/L (3.5-5.1); Sodium 140 MMOL/L (136-145); Total Protein 5.6 G/DL (6.4-8.2)
[2022-06-19] MEDS: POTASSIUM CHLORIDE RIDER 10 MEQ/100 ML PREMIX IV SCH ×2 (07:41→09:21)
[2022-06-19] MEDS: PANTOPRAZOLE 40 MG TABLET PO SCH (08:36)
[2022-06-19] MEDS: HEPARIN 5,000 UNIT/1 ML VIAL SUBCUT SCH (08:38)
[2022-06-19] MEDS ORDERED: POLYETHYLENE GLYCOL POWDER 17 GM PACK PO SCH (09:00)
[2022-06-19] MEDS ORDERED: POTASSIUM CHLORIDE 20 MEQ TABLET PO SCH (09:00)
[2022-06-19] MEDS: ONDANSETRON 4 MG/2 ML VIAL IV PRN (12:11)
[2022-06-19 16:18] VITALS: BP 120/74
== END 2022-06-19 17:41 | disposition home or self-care (01) | DRG 812 ==
LOC: N.ED 19:28 → N.EDINP 06-15 00:29 → N.TELEN 06-15 17:13
PROVIDERS: ADMIT Internal Medicine; ATTEND Internal Medicine